=== PATIENT | female | born 1955 | race Caucasian/White ===

== ENCOUNTER 2018-03-05 11:57 | Emergency (ER) | payer OTHER | END 2018-03-05 13:01 | disposition home or self-care (01) | LOC: EDH 11:57 | DX: S01.01XA Laceration without foreign body of scalp, initial encounter (principal); E07.9 Disorder of thyroid, unspecified; M19.90 Unspecified osteoarthritis, unspecified site; Z88.2 Allergy status to sulfonamides; W01.190A Fall on same level from slipping, tripping and stumbling with subsequent striking against furniture, initial encounter; Y93.89 Activity, other specified; Y92.89 Other specified places as the place of occurrence of the external cause; Y99.8 Other external cause status | CPT/HCPCS: 12032 ==